=== PATIENT | female | born 1955 | race Two or more races ===

== ENCOUNTER 2017-11-22 08:41 | Outpatient (CLI) | payer MEDICAID ==
[~2017-11-22 08:41] MED LIST: ATEN50TA PO; IBUP-1984 PO; LEVO100T PO; LISI-600 PO; iohexol 300mg/ml 100ml inj. ONE
== END 2017-11-22 23:59 | disposition home or self-care (01) ==
LOC: RAD 08:41
PROVIDERS: ATTEND Nurse Practitioner
DX: R41.3 Other amnesia (principal); I10 Essential (primary) hypertension
CPT/HCPCS: 95816; Q9967